=== PATIENT | male | born 1970 | race Caucasian/White ===

== ENCOUNTER 2020-11-09 19:41 | Observation (INO) ==
[2020-11-09] MEDS ORDERED: Ondansetron 4 MG/2 ML VIAL IVP PRN (21:55)
[2020-11-09] MEDS ORDERED: Acetaminophen 325 MG TABLET PO PRN (21:55)
[2020-11-09] MEDS ORDERED: Naloxone 0.4 MG/ML INJ IVP PRN (21:55)
[2020-11-09] MEDS: 0.9 % Sodium Chloride 1,000 ML IVC SCH (22:43)
[2020-11-09] MEDS ORDERED: Milk and Molasses Enema 200 ML RC ONE (22:49)
[2020-11-09] MEDS: Lactulose Oral Soln 20 GM/30 ML UDC PO SCH (23:31)
[2020-11-10] MEDS: Lactulose Oral Soln 20 GM/30 ML UDC PO SCH ×2 (02:09→08:03)
[2020-11-10] MEDS ORDERED: Milk and Molasses Enema 200 ML RC ONE (03:47)
[2020-11-10] MEDS: 0.9 % Sodium Chloride 1,000 ML IVC SCH (08:11)
[2020-11-10 08:39] LABS: Basophils % 0.3 %; Eosinophils # 0.1 K/mcL (0.0-0.6); Eosinophils % 1.2 %; Hematocrit 42.4 % (37.5-50.1); Hemoglobin 13.9 g/dL (12.9-16.9); Immature Granulocytes % 0.4 % (0-4); Lymphocytes % 12.4 %; Mean Corpuscular HGB Conc 32.8 g/dL (31.6-35.5); Mean Corpuscular Hemoglobin 29.2 pg (28.0-33.3); Mean Corpuscular Volume 89.1 fL (83.0-100.0); Mean Platelet Volume 9.3 fL (9.4-12.4); Monocytes # 0.7 K/mcL (0.0-1.3); Monocytes % 9.1 %; Neutrophils # 5.9 K/mcL (1.6-8.9); Platelet Count 204 K/mcL (140-400); Red Blood Count 4.76 M/mcL (4.19-5.50); Red Cell Distribution Width 12.4 % (11.5-14.5); Segmented Neutrophils % 76.6 %; White Blood Count 7.7 K/mcL (4.3-11.1)
[2020-11-10 08:59] LABS: BUN/Creatinine Ratio 24 (6-26); Blood Urea Nitrogen 16 mg/dL (6-20); Calcium 8.6 mg/dL (8.6-10.3); Carbon Dioxide 25 mEq/L (23-29); Chloride 104 mEq/L (98-107); Glucose 87 mg/dL (70-105); Magnesium 2.3 mg/dL (1.6-2.6); Osmolality,Calculated 281 (280-300); Sodium 135 mEq/L (136-145); eGFR For African Americans > 60 (> 60); eGFR For Non-African Americans > 60 (> 60)
[2020-11-10] MEDS ORDERED: *HR* Enoxaparin 30 MG/0.3 ML SYRINGE SQ SCH (09:00)
[2020-11-10 10:47] VITALS: BP 107/76
== END 2020-11-10 14:24 | disposition other institution (70) ==
LOC: 3ANU → SUATTDRO 21:22
PROVIDERS: ADMIT Internal Medicine; ATTEND Nurse Practitioner